=== PATIENT | male | born 1995 | race Caucasian/White ===

== ENCOUNTER 2019-04-19 05:12 | Day surgery (SDC) | payer BC ==
--- NOTE | 2019-04-19 08:15 | HP ---
[facility] - Chief Complaint Chief Complaint: mass left wrist History of Present Illness: mass left wrist History Source: Patient Limitations to Obtaining History: No Limitations - Past Medical History Allergies/Adverse Reactions: Allergies Allergy/AdvReac Type Severity Reaction Status Date / Time No Known Allergies Allergy Verified 04/14/19 16:05 - Current Medications Current Medications: Home Medications Medication Instructions Recorded NK [No Known Home Medication] 04/14/19 Satellite Physical Exam - Physical Examination General Appearance: Well Nourished ENT: Clear Lung: Clear to auscultation Heart: Regular rate & rhythm Breasts: Soft Abdomen: Soft Extremities: No edema Satellite Impression/Plan - Impression/Plan Impression: mass left wrist, likely ganglion cyst Operative Procedure: excision mass left wrist Date to be Performed: 04/19/19
[2019-04-19 10:22] VITALS: BMI 23.5
[2019-04-19] MEDS ORDERED: PROPOFOL 20 ML ONE ×2 (13:09→13:27)
[2019-04-19] MEDS ORDERED: MIDAZOLAM HCL 2 MG/2 ML SINGLE DOSE VIAL ONE (13:09)
[2019-04-19] MEDS ORDERED: BUPIVACAINE HCL/PF 0.5% (5 MG/ML) 30 ML VIAL IJ ONE ×3 (13:15→13:32)
[2019-04-19] MEDS ORDERED: LIDOCAINE HCL 1%, 10 MG/ML (20ML VIAL) ONE (13:15)
[2019-04-19] MEDS ORDERED: ceFAZolin SODIUM 1 GM VIAL IVPB ONE (13:20)
[2019-04-19] MEDS ORDERED: ceFAZolin SODIUM 1 GM VIAL ONE (13:24)
[2019-04-19] MEDS ORDERED: LIDOCAINE HCL 1%, 10 MG/ML (50 mL VIAL) IJ ONE ×2 (13:32)
--- NOTE | 2019-04-19 14:09 | OP ---
Operative Note - Note: Operative Date: 04/19/19 Pre-Operative Diagnosis: left wrist mass Operation: left wrist mass excision Post-Operative Diagnosis: Same as Pre-op Surgeon: Leno Butt Anesthesiologist/SPECIAL EDUCATION CURRICULUM SPECIALIST: Bg Mancuso Anesthesia: Local, MAC Specimens Removed: mass, left wrist Estimated Blood Loss (mls): 2 Drains, Volume Out (mls): 0 Blood Volume Replaced (mls): 0 Fluid Volume Replaced (mls): 500 Operative Report Dictated: Yes
[2019-04-19] MEDS ORDERED: oxyCODONE HCL 5 MG TABLET PO PRN (14:12)
[2019-04-19] MEDS ORDERED: ACETAMINOPHEN 325 MG TABLET (FP) PO PRN (14:12)
[2019-04-19] MEDS ORDERED: ONDANSETRON 4 MG/2 ML VIAL IVPUSH PRN (14:12)
[2019-04-19 16:08] VITALS: BP 130/74; PULSE 59; TEMP 97.9
--- NOTE | 2019-04-19 19:16 | OP ---
DATE OF OPERATION: 04/19/2019 DATE OF DICTATION: 04/19/2019 PREOPERATIVE DIAGNOSIS: Left wrist mass. POSTOPERATIVE DIAGNOSIS: Left wrist mass. PROCEDURE: Excision mass, left wrist. SURGEON: Leno Butt M.D. STORAGE BATTERY CHARGER: None. ANESTHESIOLOGIST: Bg Mancuso D.O. ANESTHESIA: MAC, local injection with 10 mL 0.5% Marcaine and 1% lidocaine mix. DRAINS: None. COMPLICATIONS: None. BLOOD LOSS: None. BLOOD GIVEN: None. INDICATION: The patient is a 23-year-old male with a preoperative diagnosis of a mass on the dorsal radial aspect of his left wrist. After understanding the potential risks, complications, alternatives and benefits to surgery versus nonsurgical treatment, the patient elected to undergo this procedure. DESCRIPTION OF PROCEDURE; The patient was brought to the operating room, peripheral IV placed, IV sedation, given, 1 g of IV Ancef was given. MAC anesthesia was induced. The entire case was done under 3 point loop magnification. The transverse incision was marked out within Kvng's lines and the area injected with 10 mL 0.5% Marcaine and 1% lidocaine mix in around the abnormal mass. The left upper extremity was elevated, exsanguinated with Esmarch bandage and tourniquet inflated to 250 mmHg. Number 15 scalpel blade was utilized to cut down through the skin, subcutaneous hemostasis achieved with a bipolar cautery. Dissection was done with scissors circumferentially around a superficial abnormal mass. There was a lot of fat around it, this was excised with the mass. Good care was taken to preserve all crossing extensor tendons and neurovascular structures. Upon further dissection, the mass was actually larger than expected; it was about 3 cm wide, 1 cm deep, 1 cm long, and had an obvious stalk that went down to the dorsal wrist capsule. At one point it popped, and bloody thick fluid came out, likely confirming the diagnosis of a hemorrhagic ganglion cyst. Additional careful circumferential dissection was done, and the stalk was located, decapitated at its base. It was cauterized. The area was copiously irrigated and washed out, and then I could not see or feel any abnormal tissue. The area was irrigated and washed out again. The deep dermal layer closed with 4-0 undyed Vicryl. Final skin reapproximation was done with running subcuticular 4-0 Biosyn stitch. The area was then washed and dried and covered with Steri-Strips, 4x4 gauze, fluffs between the fingers, Webril, and Coban. Tourniquet was taken down after a total tourniquet time of 29 minutes. There were no complications during the case. The patient tolerated the procedure well, was brought to the ambulatory recovery room in stable condition. Sonia [id number] MTDD
--- NOTE | 2019-04-26 09:20 | PATH ---
Surgical Pathology Report Patient Name: MARY GARCIA [facility]. Rec. #: [id number] /Age/Gender: 1995 (Age: 23) / M Account: [id number] Location: [facility] SURGICAL Taken: 04/19/2019 Received: 04/19/2019 Reported: 04/26/2019 Physicians: Leno Butt M.D. Specimen(s) Received LEFT WRIST MASS Clinical History Ganglion cyst, left wrist Final Diagnosis LEFT WRIST MASS, EXCISION: GANGLION CYST. Electronically Signed Sally Cano M.D. Gross Description Received in formalin, labeled "left wrist mass" is a 2.5 x 1.5 x 0.3 cm portion of flowers tissue. The skin reveals a cystic interior filled with brown, mucoid material. Also received are additional fragments of yellow-flowers tissue having an aggregate of 1.8 x 1.2 x 0.3 cm. Scada Technician tissue submitted in one cassette. AE/04/21/2019 ebram/04/21/2019
== END 2019-04-19 15:30 | disposition home or self-care (01) ==
LOC: JASU-SURG 05:12
PROVIDERS: ATTEND Orthopaedic Surgery
PROC: 0LB60ZZ Excision of Left Lower Arm and Wrist Tendon, Open Approach (ICD-10-PCS; principal; 2019-04-19 11:00)
DX: M67.432 Ganglion, left wrist (principal)
CPT/HCPCS: 88304-TC